=== PATIENT | female | born 1965 | race Caucasian/White ===

== ENCOUNTER 2022-07-08 15:45 | Emergency (ER) | payer OTHER, SELFPAY ==
[2022-07-08] VITALS (11 sets, daily range): BP systolic 140–167; BP diastolic 88–96; PULSE 71–83; RESP 15–21; TEMP 36.8; O2SAT 92–97
--- NOTE | ~2022-07-08 | CT_ITS ---
EXAMINATION: CT brain wo con DATE: 07/08/2022 21:09 INDICATION: headache, hypertension . TECHNIQUE: Computed tomography (CT) of the head was performed without intravenous contrast. The mA wa s adjusted according to patient size. Iterative reconstruction technique was employed. The dose-lengt h product was 605.33 mGy-cm. COMPARISON: None FINDINGS: No acute intracranial hemorrhage or extra-axial hemorrage. No hydrocephalus, mass, or herniation. No acute ischemic infarct. Unremarkable dural venous sinus attenuation. No acute osseous abnormality. The aerated spaces are clear. Atherosclerotic intracranial calcification. Thin, csf density bifrontal collections, may be related t o mild atrophy, chronic subdural or cystic hygroma. IMPRESSION: No acute intracranial process. Reviewed, dictated and finalized at location K.
--- NOTE | ~2022-07-08 | XR_ITS ---
EXAMINATION: XR chest 2V Exam Date/Time: 07/08/2022 17:15 CDT HISTORY: hypertension, headache Comparison: None available. RESULT: Lines, tubes, and devices: None. Lungs and pleura: Ill-defined patchy and streaky bilateral lower lung opacities. Cardiomediastinal silhouette: Stable. Other: No acute osseous or upper abdominal finding. IMPRESSION: Bilateral lower lung opacities may reflect atelectasis or infection, including atypical/viral etiolog ies. Reviewed, dictated and finalized at location K. IMPRESSION: Bilateral lower lung opacities may reflect atelectasis or infection, including atypical/viral etiologies.
[2022-07-08 16:18] LABS: Basophils Percent Auto 0.5 % (0.2-1.2); Eosinophils Absolute Auto 0.1 K/mm3 (0-0.3); Eosinophils Percent Auto 0.8 % (0-4.4); Immature Granulocyte Absolute 0.03 K/mm3 (0.00-0.031); Immature Granulocyte Percent A 0.3 % (0-0.5); Lymphocytes Absolute Auto 1.77 K/mm3 (0.9-3.2); Mean Corpuscular HGB Conc 33.3 g/dl (32-36); Mean Corpuscular Hemoglobin 32.8 pg (26-34); Mean Corpuscular Volume 98.4 fl (80-100); Mean Platelet Volume 9.3 fl (7.4-10.4); Monocytes Absolute Auto 0.5 K/mm3 (0.1-0.6); Monocytes Percent Auto 5.9 % (2.6-8.5); Neutrophils Absolute Auto 6.4 K/mm3 (1.3-6.7); Neutrophils Percent Auto 72.5 % (45.5-73.1); Platelet Count Result 300 k/mm3 (150-375); Red Blood Count 4.27 M/mm3 (4.2-5.4); Red Cell Distribution Width 13.7 % (11.5-14.5); White Blood Count 8.9 K/mm3 (4.5-10.0)
[2022-07-08 16:31] LABS: Alanine Aminotransferase 34 U/L (6-35); Albumin Level 4.7 g/dL (3.5-5.1); Alkaline Phosphatase 130 U/L (38-126); Anion Gap 12 mmol/L (8-16); Aspartate Amino Transferase 37 U/L (14-36); Bilirubin,Total 0.6 mg/dL (0.2-1.3); Blood Urea Nitrogen 11 mg/dL (7-17); Calcium 9.6 mg/dL (8.4-10.2); Carbon Dioxide 20 mmol/L (22-30); Chloride 106 mmol/L (98-107); Estimated CRCL calculation 80 ml/min; Estimated Glomerular Filt Rate > 60; Glucose 114 mg/dL (65-110); Potassium 3.7 mmol/L (3.4-5.0); Sodium 138 mmol/L (137-145)
--- NOTE | 2022-07-08 17:02 | ECG_ITS ---
Measurements Intervals [place] Rate: 71 P: 10 DE: 162 QRS: 66 QRSD: 73 T: 20 QT: 409 QTc: 445 Interpretive Statements SINUS RHYTHM LOW QRS VOLTAGE IN PRECORDIAL LEADS CANNOT RULE OUT SEPTAL INFARCT, AGE INDETERMINATE NONSPECIFIC T-WAVE ABNORMALITY- ANTERIOR LEADS ABNORMAL ECG NO PREVIOUS ECG AVAILABLE FOR COMPARISON Electronically Signed On 07-09-2022 6:49:15 CDT by Gerson Mantilla D.O.
--- NOTE | 2022-07-08 21:05 | ED.RECABL ---
HPI - Recheck/Abnormal Lab/Rx General Chief Complaint: Recheck/Abnormal Lab/Rx Stated Complaint: high bp Time Seen by Provider: 07/08/22 17:02 Source: patient Mode of arrival: ambulatory Limitations: no limitations History of Present Illness HPI narrative: This is a 57-year-old female that presents to the emergency department for lightheadedness present intermittently over the last couple of days. Reports she took her blood pressure today and it was elevated which prompted her to be seen. She has no known history of hypertension. She also has had headaches. Denies vision changes, vomiting, chest pain, shortness of breath, or lower extremity edema. Related Data Home Medications Medication Instructions Recorded Confirmed atorvastatin 20 mg tablet 20 mg PO DAILY 01/13/22 01/13/22 Allergies Allergy/AdvReac Type Severity Reaction Status Date / Time Penicillins Allergy Intermediate RASH Verified 01/13/22 08:09 Sulfa (Sulfonamide Allergy Intermediate RASH Verified 01/13/22 08:09 Antibiotics) codeine Allergy Unknown Nausea and Verified 01/13/22 08:09 Vomiting hydrocodone Allergy Unknown Nausea and Verified 01/13/22 08:09 Vomiting Review of Systems Review of Systems: CONSTITUTIONAL: Denies fever EYES: Denies visual changes CARDIOVASCULAR: Denies chest pain, or edema. RESPIRATORY: Denies dyspnea. GASTROINTESTINAL: Denies vomiting NEUROLOGIC: Denies numbness, or weakness. All systems reviewed & are unremarkable except as noted in HPI and below PMFSH Past Medical History Medical History Anxiety Arthritis Depression Ovarian cyst Screening mammogram, encounter for Surgical History Surgical History History of breast implant 1994 had them replaced at later date Family History Family History Grandparent Carcinoma of colon maternal grandmother Heart disease maternal grandmother maternal grandfather Mother Hypertension Social History Social History (Updated 01/13/22 @ 08:12 by LUCAS Fernandez) Smoking status: Current every day smoker Alcohol intake: current Drinks per week: 6 Substance use: never Substance use type: does not use Additional living arrangements comments: spouse 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 HEAD: Normocephalic, atraumatic. EYES: PERRLA and EOMI. ENT: Nares clear, no rhinorrhea or epistaxis. Mucous membranes moist. Oropharynx without tonsillar hypertrophy exudate or other lesions. Bilateral TMs pearly ann non-bulging NECK: Supple. No adenopathy or masses. CHEST: Clear to auscultation. No respiratory distress. No wheezes rales or rhonchi HEART: Regular rate and rhythm. No murmur heard. Normal peripheral pulses. EXTREMITIES: Normal range of motion. No edema. SKIN: Warm, dry, no rash. NEURO: No focal deficits. Alert and oriented x3. Cranial nerves II through XII grossly intact PSYCH: Normal mood and affect Course Vital Signs Vital signs: Vital Signs Temperature 98.2 F 07/08/22 15:48 Pulse Rate 83 07/08/22 15:48 Respiratory Rate 18 07/08/22 15:48 Blood Pressure 167/93 H 07/08/22 15:48 Pulse Oximetry 97 07/08/22 15:48 Oxygen Delivery Room Air 07/08/22 15:48 Temperature 98.2 F 07/08/22 15:48 Pulse Rate 78 07/08/22 22:30 Respiratory Rate 19 07/08/22 22:30 Blood Pressure 150/88 H 07/08/22 20:46 Pulse Oximetry 93 07/08/22 22:30 Oxygen Delivery Room Air 07/08/22 15:48 MDM - Recheck/Abnormal Lab/Rx MDM Narrative Medical decision making narrative: Patient presents to the emergency
[2022-07-08] MEDS: SODIUM CHLORIDE 0.9% IV 500 ML 999 ML IV CONT (21:51)
[2022-07-08 22:37] LABS: Influenza A QL RT-PCR Negative (Negative); Influenza B QL RT-PCR Negative (Negative); SARS-CoV-2 RNA PCR Negative
== END 2022-07-08 23:14 | disposition home or self-care (01) ==
PROVIDERS: Physician Assistant; Emergency Provider Emergency Medicine; PCP Internal Medicine
DX: R03.0 Elevated blood-pressure reading, without diagnosis of hypertension (principal); Z20.822 Contact with and (suspected) exposure to COVID-19; M19.90 Unspecified osteoarthritis, unspecified site; F17.200 Nicotine dependence, unspecified, uncomplicated; R91.8 Other nonspecific abnormal finding of lung field
CPT/HCPCS: 36415; 70450; 71046; 80053; 85025; 87502; 93005; 96365; 99284; C9803; J0131; J7040; U0003; U0005

== ENCOUNTER 2024-08-11 09:52 | Emergency (ER) | payer BC, SELFPAY ==
--- NOTE | ~2024-08-11 | XR_ITS ---
EXAMINATION: XR chest 2V DATE: 08/11/2024 10:36 INDICATION: Cough. TECHNIQUE: Frontal and lateral views of the chest were obtained. COMPARISON: Chest 2 views 07/08/2022 FINDINGS: There are airspace opacities at left lung base. No pleural effusion or pneumothorax. The he art size is normal. IMPRESSION: 1. Airspace opacities at left lung base, consistent with atelectasis/scarring versus pneumonia. Reviewed, dictated and finalized at location A. IMPRESSION: 1. Airspace opacities at left lung base, consistent with atelectasis/scarring v ersus pneumonia.
[2024-08-11 10:06] VITALS: BP 112/72; PULSE 80; RESP 18; TEMP 36.2; O2SAT 98
--- NOTE | 2024-08-11 10:14 | ED_ITS ---
HPI - URI/Sore Throat General Chief Complaint: Upper Respiratory Infection Stated Complaint: Cough Source: patient Mode of arrival: ambulatory Limitations: no limitations History of Present Illness HPI Narrative: 59-year-old female with a history of hypertension presenting for complaint of cough for 5 days. Endorses ' flu symptoms' for 3 days such as subjective fever and nausea which have resolved. She is taking mucinex and robitussin. Denies shortness of breath, wheezing, vomiting, diarrhea, fever, or lethargy. States her was diagnosed with bronchitis and prescribed an antibiotic. Related Data Home Medications Medication Instructions Recorded Confirmed atorvastatin 20 mg tablet 20 mg PO DAILY 01/13/22 08/11/24 lisinopril 2.5 mg tablet 2.5 mg PO DAILY 01/18/23 08/11/24 Allergies Allergy/AdvReac Type Severity Reaction Status Date / Time Penicillins Allergy Intermediate RASH Verified 08/11/24 10:24 Sulfa (Sulfonamide Allergy Intermediate RASH Verified 08/11/24 10:24 Antibiotics) codeine Allergy Unknown Nausea and Verified 08/11/24 10:24 Vomiting hydrocodone Allergy Unknown Nausea and Verified 08/11/24 10:24 Vomiting Review of Systems Review of Systems: CONSTITUTIONAL: Denies body aches, fever, chills, or sweats. EYES: Denies visual changes, redness, or discharge. ENT: Denies rhinorrhea, congestion, sore throat, or otalgia. CARDIOVASCULAR: Denies chest pain, palpitations, or edema. RESPIRATORY: Reports cough, denies sob, wheezing. GASTROINTESTINAL: Denies abdominal pain, nausea, vomiting, or diarrhea. SKIN: Denies rash NEUROLOGIC: Denies headache All systems reviewed & are unremarkable except as noted in HPI and below PMFSH Past Medical History Medical History Anxiety Arthritis Depression Hypertension Ovarian cyst Screening mammogram, encounter for Surgical History Surgical History History of breast implant 1994 had them replaced at later date Family History Family History Grandparent Carcinoma of colon maternal grandmother Heart disease maternal grandmother maternal grandfather Mother Hypertension Social History Social History Smoking status: Current every day smoker Tobacco type: cigarettes Alcohol intake: current Drinks per week: 6 Substance use: never Substance use type: does not use Do You Feel Safe in your Home?: Yes Lack of Transportation: No Lack of Food: Never True Current Housing: I Have Housing Concerned About Future Housing: No Difficulty Paying Gas/Electric Bills: No Difficulty Paying for Meds: No Currently Unemployed: No Education: Trade/Vocational Certificate Difficulty w/ Childcare or Family Care: No Living arrangements: other Additional living arrangements comments: spouse Occupation/Education: occupation 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 Please see nursing chart for further information. There is no relevant family history pertinent to the presenting complaint Exam Narrative: GENERAL: Well-appearing, in no acute distress. ENT: Mucous membranes pink and moist. No rhinorrhea. TMs normal bilaterally. Throat normal. Uvula midline. NECK: Normal AROM. Supple. CHEST: No respiratory distress. Lungs clear to all grimaldo. HEART: Regular rate and rhythm. No murmur appreciated. ABDOMEN: Soft, nontender, nondistended, normal active bowel sounds. SKIN: Warm, dry, no rash. Capillary refill normal. Normal skin turgor. NEURO: Alert and oriented x3. Gait steady. PSYCH: Normal affect. Course Course Emergency Course: Patient is aware of diagnosis, understands and agrees to treatment plan. Anticipatory guidance given. Patient agrees to follow-up as directed and is aware of reasons to seek care at the emergency department. Portions of this record may have been created with voice recognition software Level of Care: Express Care Visit Vital Signs Vital signs: Vital Signs Temperature 97.1 F L 08/11/24 10:06 Pulse Rate 80 08/11/24 10:06 Respiratory Rate 18 08/11/24 10:06 Blood Pressure 112/72 08/11/24 10:06 Pulse Oximetry 98 08/11/24 10:06 Oxygen Delivery Room Air 08/11/24 10:06 Temperature 97.1 F L 08/11/24 10:06 Pulse Rate 80 08/11/24 10:06 Respiratory Rate 18 08/11/24 10:06 Blood Pressure 112/72 08/11/24 10:06 Pulse Oximetry 98 08/11/24 10:06 Oxygen Delivery Room Air 08/11/24 10:06 MDM - URI/Sore Throat MDM Narrative Medical decision making narrative: Discussed physical exam findings and cxr. . Advised supportive measures and signs/symptoms to go to the ER. Pt is appropriate for outpt treatment and f/u. Differential Diagnosis Differential diagnosis: Likely upper respiratory infection, sinusitis, viral infection, bronchitis, influenza and other (pneumonia) Imaging Data Radiologist's impression: Patient: Krystal Bautista : 1965 MR#: [id number] Age: 59 Acct:[id number] Loc: [id number] ADM Date: 08/11/24Attending Dr: Ordering Physician: Millie Avilez APRN Date of Service: 08/11/24 Procedure(s): XR chest 2V Accession Number(s): [id number] cc: Millie Avilez APRN; Kim, Leny [employer]POR[employer] QUAL[employer] ASSURANCE MANAGER~ EXAMINATION: XR chest 2V DATE: 08/11/2024 10:36 INDICATION: Cough. TECHNIQUE: Frontal and lateral views of the chest were obtained. COMPARISON: Chest 2 views 07/08/2022 FINDINGS: There are airspace opacities at left lung base. No pleural effusion or pneumothorax. The heart size is normal. IMPRESSION: 1. Airspace opacities at left lung base, consistent with atelectasis/scarring versus pneumonia. Discharge Plan Discharge Clinical Impression: Acute lower respiratory tract infection Patient Disposition: Home, Self-Care Condition: Stable Instructions: Antibiotic Form, Pneumonia (ED) Additional Instructions: Pneumonia is a lung infection that can cause a fever, cough, and trouble breathing. How it spreads: When someone with bacterial pneumonia coughs, sneezes, or talks, they release respiratory droplets into the air that can be inhaled by others.?You can also get pneumonia by touching a contaminated surface or object and then touching your mouth or nose. You're generally contagious for around 48 hours after starting antibiotics and your fever goes away.? To prevent the spread of pneumonia, you can:? ? Get vaccinated? ? Wash your hands often with soap and water for 20 seconds? ? Cover your mouth with a tissue when you cough or sneeze? ? Avoid people who are already sick with pneumonia? ? Stay home when you have pneumonia Take antibiotics as directed until complete. eat small frequent meals. Get lots of rest and drink fluids. Alternate Tylenol and ibuprofen for pain/fever [id number] cough medication can cause drowsiness, take according to package directions If you have nasal congestion, you can take Zyrtec, Claritin along with Flonase spray Call your Primary Care Doctor and make a follow-up appointment in 3 days. Go to the ER for worsening symptoms or concerns Prescriptions: New azithromycin [Zithromax Z-Abhilash] 250 mg tablet See Rx Instructions .ROUTE .COMPLEX Qty: 6 0RF Rx Instructions: For 250 mg dose pack: take 500 mg today (day 1), then 250 mg for 4 days (days 2-5) prednisone 50 mg tablet 50 mg PO DAILY Qty: 5 0RF No Action lisinopril 2.5 mg tablet 2.5 mg PO DAILY atorvastatin 20 mg tablet 20 mg PO DAILY tolterodine [Detrol LA] 4 mg capsule,extended release 24hr 4 mg PO DAILY Qty: 90 3RF Follow-up/Referrals: Kim,Leny Ortiz APRN [Primary Care Provider] - Time of Disposition: 10:56
== END 2024-08-11 10:59 | disposition home or self-care (01) ==
PROVIDERS: Emergency Provider Nurse Practitioner Family; PCP Nurse Practitioner Family
DX: J22 Unspecified acute lower respiratory infection (principal); F17.210 Nicotine dependence, cigarettes, uncomplicated; I10 Essential (primary) hypertension; M19.90 Unspecified osteoarthritis, unspecified site
CPT/HCPCS: 71046; 99213; G0463